=== PATIENT | female | born 1990 | race Caucasian/White ===

== ENCOUNTER 2022-04-22 09:46 | Inpatient (IN) | payer OTHER ==
[~2022-04-22 09:46] MED LIST: Bupivacaine/Epinephrine 0.25% 30 ML VIAL ONE
[2022-04-22 09:54] VITALS: BMI 31.8
[2022-04-22] MEDS ORDERED: HYDROcodone/Acetaminophen 5/325 mg Tablet PO PRN ×3 (10:00→21:45)
[2022-04-22] MEDS ORDERED: NS w/ Oxytocin 30 units 500 ML IV SCH ×3 (10:00→21:45)
[2022-04-22] MEDS ORDERED: Ondansetron PF 4 MG/2 ML Vial IVP PRN ×3 (10:00→21:45)
[2022-04-22] MEDS ORDERED: Misoprostol 200 MCG TAB PR PRN (10:00)
[2022-04-22] MEDS ORDERED: Ibuprofen 800 MG TAB PO PRN (10:00)
[2022-04-22] MEDS ORDERED: Docusate 100 MG CAP PO PRN (10:00)
[2022-04-22] MEDS ORDERED: Penicillin G Potassium 5 MILL.UNITS in Sodium Chloride 0.9% 100 ML IVPB SCH (10:00)
[2022-04-22] MEDS ORDERED: Butorphanol Tartrate 1 MG/ML VIAL SLOW IVP PRN (10:00)
[2022-04-22] MEDS ORDERED: Acetaminophen 500 MG TAB PO PRN (10:00)
[2022-04-22] MEDS ORDERED: Lidocaine 1% (PF) 30 ML VIAL SC PRN (10:00)
[2022-04-22] MEDS: Lactated Ringer's 1,000 ML IV SCH ×3 (10:00→22:23)
[2022-04-22] MEDS ORDERED: Diphenoxylate HCl/Atropine Tablet PO PRN ×2 (10:00)
[2022-04-22] MEDS ORDERED: Promethazine HCl 25 MG/ML VIAL IM PRN ×2 (10:00→13:02)
[2022-04-22] MEDS ORDERED: hydrALAZINE 20 MG/ML VIAL SLOW IVP PRN ×2 (10:00→21:45)
[2022-04-22] MEDS ORDERED: Carboprost 250 MCG/ML AMP IM PRN (10:00)
[2022-04-22 10:57] LABS: Hemoglobin 12.1 g/dL (12.0-15.5); Mean Corpuscular HGB CONC 33.9 g/dL (32.0-36.0); Mean Corpuscular Hemoglobin 30.2 pg (27.0-33.0); Mean Platelet Volume 11.3 fl (7.4-10.4); Platelet Count 238 10x3/uL (150-450); RBC Distribution Width 12.9 % (11.5-14.5); Red Blood Cell (RBC) Count 4.01 10x6/uL (3.90-5.03); White Blood Cell (WBC) Count 9.3 10x3/uL (3.5-10.5)
[2022-04-22 11:36] LABS: Syphilis Antibody Nonreactive (Nonreactive); Syphilis Antibody Index 0.04 S/CO (<1.00 Non-Reactive)
[2022-04-22 11:38] LABS: HIV (1/2) Antibody/Antigen Non-Reactive (NonReactive); HIV 1/2 INDEX 0.11 S/CO (<1.00); Hep B Surf Ag Non-Reactive S/CO (NonReactive)
[2022-04-22 11:46] LABS: SARS-CoV-2 NAA Rapid Test Not Detected (NotDetected)
[2022-04-22] MEDS ORDERED: Fentanyl 2 mcg/Bup 0.1% Cadd 100 ML ONE (12:42)
[2022-04-22] MEDS ORDERED: diphenhydrAMINE 50 MG/ML VIAL IVP PRN (13:02)
[2022-04-22] MEDS ORDERED: Moisturizing Cream (Eucerin) 113 GM JAR TOP PRN (13:02)
[2022-04-22] MEDS ORDERED: Naloxone HCl 0.4 mg/ml Vial IVP PRN ×2 (13:02)
[2022-04-22] MEDS ORDERED: Lactated Ringer's 500 ML IV PRN (13:02)
[2022-04-22] MEDS ORDERED: ePHEDrine Sulfate 50 MG/10 ML VIAL SLOW IVP PRN (13:02)
[2022-04-22] MEDS ORDERED: Acetaminophen 325 MG TAB PO PRN ×2 (13:02→21:47)
[2022-04-22] MEDS ORDERED: Fentanyl 2 mcg/Bupivacaine 0.1% Cassette 100 ML EPIDURAL SCH (13:15)
[2022-04-22] MEDS ORDERED: Communication Order-Pharmacy FS SCH (13:15)
[2022-04-22] MEDS: Penicillin G 2.5 MILL.units 2.5 MILL.UNITS in Premix Bag 1 BAG IVPB SCH ×3 (15:11→22:23)
[2022-04-22] MEDS ORDERED: Benzocaine-Menthol 82.5 ML CAN TOP PRN (21:45)
[2022-04-22] MEDS ORDERED: Preparation H Ointment 28 GM TUBE PR PRN (21:45)
[2022-04-22] MEDS ORDERED: Bisacodyl 10 MG SUPP PR PRN (21:45)
[2022-04-22] MEDS ORDERED: Lanolin Ointment 7 GM TUBE TOP PRN (21:45)
[2022-04-22] MEDS ORDERED: Misoprostol 200 MCG TAB VAG PRN (21:45)
[2022-04-22] MEDS ORDERED: diphenhydrAMINE 25 MG CAP PO PRN (21:45)
[2022-04-22] MEDS ORDERED: Boostrix 0.5 ML (Tdap) VIAL (>/=7 yrs of age) IM ONE (21:45)
[2022-04-22] MEDS ORDERED: Zolpidem Tartrate 5 MG TAB PO PRN (21:45)
[2022-04-22] MEDS ORDERED: Milk Of Magnesia 30 ML UDCUP PO PRN (21:45)
[2022-04-22] MEDS ORDERED: Witch Hazel-Glycerin 1 EACH JAR TOP PRN (21:47)
[2022-04-23] MEDS: Ibuprofen 800 MG TAB PO SCH ×4 (00:43→17:51)
[2022-04-23 05:31] LABS: Hemoglobin 10.3 g/dL (12.0-15.5); Mean Corpuscular HGB CONC 33.4 g/dL (32.0-36.0); Mean Corpuscular Hemoglobin 29.7 pg (27.0-33.0); Mean Corpuscular Volume 88.8 fl (81.6-98.3); Mean Platelet Volume 10.7 fl (7.4-10.4); Platelet Count 183 10x3/uL (150-450); Red Blood Cell (RBC) Count 3.47 10x6/uL (3.90-5.03)
[2022-04-23] MEDS: Ferrous Sulfate 325 MG TAB PO SCH ×2 (07:14→16:27)
[2022-04-23] MEDS: Prenatal Vitamin 1 TAB PO SCH (08:51)
[2022-04-23] MEDS: Docusate 100 MG CAP PO SCH (08:51)
[2022-04-23] MEDS: HYDROcodone/Acetaminophen 5/325 mg Tablet PO PRN ×2 (08:52→14:47)
[2022-04-24] MEDS: Docusate 100 MG CAP PO SCH ×2 (00:04→08:19)
[2022-04-24] MEDS: Ibuprofen 800 MG TAB PO SCH ×2 (00:04→10:58)
[2022-04-24] MEDS: Ferrous Sulfate 325 MG TAB PO SCH (07:29)
[2022-04-24 07:46] VITALS: BP 107/64; TEMP 98.3
[2022-04-24] MEDS: HYDROcodone/Acetaminophen 5/325 mg Tablet PO PRN (08:19)
[2022-04-24] MEDS: Prenatal Vitamin 1 TAB PO SCH (08:19)
== END 2022-04-24 14:15 | disposition home or self-care (01) | DRG 807 ==
LOC: CSHLD 09:46 → CSHPP 23:52
PROVIDERS: ADMIT Obstetrics & Gynecology; ATTEND Obstetrics & Gynecology
PROC: 10E0XZZ Delivery of Products of Conception, External Approach (ICD-10-PCS; principal; 2022-04-22)
PROC: 0KQM0ZZ Repair Perineum Muscle, Open Approach (ICD-10-PCS; 2022-04-22)
DX: O42.02 Full-term premature rupture of membranes, onset of labor within 24 hours of rupture (principal); Z37.0 Single live birth; O99.824 Streptococcus B carrier state complicating childbirth; O70.1 Second degree perineal laceration during delivery; Z3A.37 37 weeks gestation of pregnancy; Z20.822 Contact with and (suspected) exposure to COVID-19; Z79.899 Other long term (current) drug therapy
CPT/HCPCS: 51702; 85027; 86780; 86850; 86900; 86901; 87340; 87389; J2405; J2540; J2590; J3490; J7120; U0002